=== PATIENT | female | born 1985 | race Caucasian/White ===

== ENCOUNTER 2025-02-16 16:07 | Emergency (ER) | payer BC ==
[2025-02-16] MEDS ORDERED: Sodium Chloride 0.9% 10 ML Syringe FLUSH PRN (16:39)
[2025-02-16] MEDS: Albuterol 0.083% 2.5 MG/3 ML Neb Soln NEB ONE (16:59)
[2025-02-16 17:12] LABS: HEMATOCRIT 42.2 % (37.0-47.0); HEMOGLOBIN 14.3 gm/dl (12.0-16.0); MEAN CORPUSCULAR HEMOGLOBIN 30.7 pg (28.0-32.0); MEAN CORPUSCULAR HGB CONC 33.9 g/dl (32.0-36.0); MEAN CORPUSCULAR VOLUME 90.6 fl (83.0-99.0); MEAN PLATELET VOLUME 7.8 fl (9.4-12.3); PLATELET COUNT,PLT 331 K/mm3 (150-400); RED BLOOD CELL COUNT 4.66 M/mm3 (4.10-5.30); WHITE BLOOD CELL COUNT,WBC 9.02 K/mm3 (3.9-11.3)
[2025-02-16] MEDS: Acetaminophen 325 MG Tab PO ONE (17:16)
[2025-02-16] MEDS: Sodium Chloride 0.9% 1,000 ML IV SCH (17:17)
[2025-02-16 17:28] LABS: PROTHROMBIN TIME 10.6 SECONDS (9.7-12.0)
[2025-02-16 17:33] LABS: A/G RATIO 0.6 (1-2); ALBUMIN 2.9 g/dl (3.4-5.0); ANION GAP 15.1 (5-15); BILIRUBIN TOTAL 0.3 mg/dL (0.2-1.0); BUN/CREATININE RATIO 5.7 (14-18); C-REACTIVE PROTEIN 8.77 mg/dL (<0.30); CALCIUM 8.6 mg/dL (8.5-10.1); CREATININE 0.7 mg/dL (0.55-1.02); EST CRCL DRUG DOSING (CG) 87.49 mL/min; POTASSIUM,K 3.1 mEq/L (3.5-5.1); PROTEIN TOTAL,TP 7.8 g/dl (6.4-8.2)
[2025-02-16 17:35] LABS: BAND PERCENT MAN 0 % (0-10); BASOPHILS PERCENT MAN 0 (0.1-1.2); EOSINOPHILS PERCENT MAN 0 % (0.7-5.8); LYMPHOCYTES % ATYPICAL MANUAL 3 %; LYMPHOCYTES PERCENT MAN 8 % (20-40); MONOCYTES PERCENT MAN 1 % (2-10)
[2025-02-16 17:36] LABS: TOXIC GRANULATION 1+ SLIGHT
[2025-02-16 17:38] LABS: LACTIC ACID 0.7 mmol/L (0.4-2.0); PLATELET COUNT ESTIMATE ADEQUATE
[2025-02-16] MEDS: Iopamidol 755 Mg/ML 100 ML Bottle IVPUSH ONE (18:10)
[2025-02-16] MEDS: Sodium Chloride 0.9% 100 ML IV SCH (18:10)
[2025-02-16] MEDS: Amoxicillin/Clavulanate K 875-125 MG Tab PO ONE (19:10)
[2025-02-16] MEDS: Doxycycline Monohydrate 100 MG Cap PO ONE (19:10)
[2025-02-16] MEDS: Albuterol 6.7 GM Inhaler INH ONE (19:22)
[2025-02-16 20:15] VITALS: BP 140/96; PULSE 121
== END 2025-02-16 19:40 | disposition home or self-care (01) ==
LOC: JD.ED 16:07
DX: J18.9 Pneumonia, unspecified organism (principal)
CPT/HCPCS: 36415; 71045; 71275; 80053; 83605; 85007; 85027; 85610; 86140; 87040; 93005; 94640; 96360; 96361; 99285; A9270; J7030; J7613; Q9967; 93010; 99283